=== PATIENT | female | born 1955 | race Two or more races ===

== ENCOUNTER 2020-05-30 01:39 | Emergency (ER) | payer MEDICARE, OTHER ==
[~2020-05-30] VITALS: Ht 129.5 cm; Wt 63.5 kg
--- NOTE | 2020-05-30 01:48 | NUR ---
PT AAOX4. AMBULATORY WITH STEADY GAIT, BIBRA C/O ABDOMINAL PAIN X1 WEEK, N/V X10 IN 24 HRS. STATED SHE HAS GALLSTONES. PT PLACED IN BED 9 ON MONITOR AND PULSE OX. VSS. NO ACUTE DISTRESS NOTED. MD AT BEDSIDE FOR EVAL. AWAITING ORDERS.
--- NOTE | 2020-05-30 01:52 | NUR ---
URINE COLLECTED AND SENT TO LAB
--- NOTE | 2020-05-30 01:57 | NUR ---
LABS COLLECTED AND SENT
[2020-05-30] MEDS ORDERED: MORPHINE SULFATE INJ 2 MG/ML DISP.SYRIN IV ONE (02:00)
[2020-05-30] MEDS ORDERED: IV NS 0.9% 1,000 ML BAG IV ONE (02:00)
[2020-05-30] MEDS ORDERED: ONDANSETRON HCL/PF 4 MG/2 ML VIAL IVP ONE (02:00)
[2020-05-30] MEDS ORDERED: MORPHINE SULFATE INJ 4 MG/ML DISP.SYRIN ONE (02:08)
[2020-05-30] MEDS ORDERED: ONDANSETRON HCL/PF 4 MG/2 ML VIAL ONE (02:08)
[2020-05-30 02:22] LABS: BASOPHILS % (AUTO) 0.2 % (0.0-2.0); HEMATOCRIT 43 % (33-45); HEMOGLOBIN 14.5 g/dL (11.5-14.8); LYMPHOCYTES # (AUTO) 3.1 /CMM (0.8-4.8); MEAN CORPUSCULAR HGB CONC 33 g/dl (31.0-36.0); MEAN CORPUSCULAR VOLUME 93 fL (82-100); MONOCYTES # (AUTO) 1.2 /CMM (0.1-1.30); MONOCYTES % (AUTO) 13.3 % (2.0-12.0); NEUTROPHILS # (AUTO) 4.6 /CMM (1.8-8.9); NEUTROPHILS % (AUTO) 49.5 % (43.0-81.0); PLATELET COUNT (AUTO) 224 /CMM (150-450); RED BLOOD CELL COUNT(AUTO) 4.67 MIL/uL (4.0-5.2); WHITE BLOOD COUNT (AUTO) 9.3 K/uL (4.3-11.0)
[2020-05-30 02:29] LABS: CALCIUM, SERUM 9.4 mg/dL (8.5-10.1); CREATININE 0.7 mg/dL (0.6-1.3); POTASSIUM 3.8 mmol/L (3.5-5.1)
[2020-05-30 02:29] LABS: APPEARANCE,URINE CLEAR (CLEAR); BILIRUBIN,URINE NEGATIVE (NEGATIVE); BLOOD, URINE TRACE-INTA Ery/uL (NEGATIVE); COLOR,URINE YELLOW (YELLOW); KETONES,URINE NEGATIVE (NEGATIVE); LEUKOCYTE ESTERASE ,URINE NEGATIVE (NEGATIVE); NITRITE, URINE NEGATIVE (NEGATIVE); PROTEIN,URINE TRACE mg/dl (NEGATIVE); UGLUCOSE NEGATIVE (NEGATIVE)
[2020-05-30 02:36] LABS: BACTERIA,URINE None seen /HPF (None Seen); RBC,URINE 0-2 /HPF (0-2); SQUAMOUS EPITHELIAL CELL,UR Few /HPF (None Seen); WBC,URINE 0-2 /HPF (0-3)
[2020-05-30 02:39] LABS: ALBUMIN 3.6 g/dL (3.4-5.0); BILIRUBIN,DIRECT 0.2 mg/dL (0.0-0.2); BILIRUBIN,TOTAL 0.6 mg/dL (0.2-1.0); TOTAL PROTEIN, SERUM 7.5 g/dL (6.4-8.2)
--- NOTE | 2020-05-30 02:46 | NUR ---
CALLED RADIOLOGY REGARING CTW
--- NOTE | 2020-05-30 02:50 | NUR ---
Dawn alarcon in ED - 05/30/20 at 0306 by [facility] AT BEDSIDE
--- NOTE | 2020-05-30 03:06 | NUR ---
Brought to ct
[2020-05-30] MEDS ORDERED: IOHEXOL-300 100 ML VIAL IV ONE (03:13)
[2020-05-30] MEDS ORDERED: IV NS 0.9% 250 ML IV ONE (03:13)
--- NOTE | 2020-05-30 04:04 | NUR ---
PT IN BED WATCHING TV.
--- NOTE | 2020-05-30 04:34 | NUR ---
IV removed. Catheter intact and site benign. Pressure and 4x4 applied to site. No bleeding noted.
--- NOTE | 2020-05-30 04:34 | NUR ---
PT STATED SHE FEELS BETTER. DENIES PAIN.
--- NOTE | 2020-05-30 04:35 | NUR ---
Patient discharged to home in stable condition. Written and verbal after care instructions given. Patient verbalizes understanding of instruction. Pt ambulated with steady gait. vss.
[2020-05-30 04:46] VITALS: BP 129/72
== END 2020-05-30 05:07 | disposition home or self-care (01) ==
LOC: ER 01:41
DX: R10.31 Right lower quadrant pain (principal); R10.32 Left lower quadrant pain; R11.10 Vomiting, unspecified
CPT/HCPCS: 36415; 74177; 80048; 80076; 81001; 83690; 85025; 96361; 96374; 96375; 99285; J2270; J2405; J7030; J7050; Q9967; 81000-TC